=== PATIENT | female | born 1970 | race Caucasian/White ===

== ENCOUNTER → 2017-08-23 | Outpatient (CLI) | payer OTHER ==
[~2017-08-23] MED LIST: PROHANCE 279.3MG/ML 15ML VIAL (A9576) As Ordered
== END ==
LOC: M RAD 09:41
DX: R92.8 Other abnormal and inconclusive findings on diagnostic imaging of breast (principal)
CPT/HCPCS: A9576

== ENCOUNTER → 2017-09-04 | Outpatient (CLI) | payer OTHER | LOC: M RAD 14:35 | DX: N60.31 Fibrosclerosis of right breast (principal); N60.32 Fibrosclerosis of left breast | CPT/HCPCS: A9576 ==

== ENCOUNTER → 2018-04-01 | Outpatient (CLI) | payer OTHER ==
--- NOTE | 2018-04-01 14:16 | REPMRS ---
Patient History The patient states she has not had a clinical breast exam in over a year. Patient is postmenopausal and had first child at age 30. Family history of breast cancer at age 55 in mother. 2D ONLY. Digital Mammo Screening Bilat: April 01, 2018 - Exam #: [id number] Bilateral CC and MLO view(s) were taken. Technologist: Angelique Lopez, Technologist Prior study comparison: September 04, 2017, bilateral breast MRI performed at [facility]. January 30, 2017, bilateral digital mammo screening bilat performed at [facility]. January 21, 2016, bilateral digital mammo screening bilat performed at [facility]. FINDINGS: There are scattered fibroglandular densities. There is a moderate amount of residual fibroglandular tissue which is fairly symmetric. There is no interval development of dominant mass, architectural distortion, or clustered microcalcification typical of malignancy. There has been no change in the appearance of the mammogram from the prior studies. 3-D tomosynthesis shows no additional findings. Assessment: BI-RADS/ACR category 1 mammogram. Negative. Recommendation Breast MRI of both breasts in 6 months. Routine screening mammogram of both breasts in 1 year (for women over age 40). This patient's Lifetime Breast Cancer RIsk is estimated at 24.0 %. Annual screening Breast MRI scanniing is recommended for patient's whose lifetime risk assessment is over 20%. This mammogram was interpreted with the aid of an FDA-approved computer-aided dectection system. Electronically Signed By: Kai Cedillo MD 04/01/18 [id number]
== END ==
LOC: M RAD 13:20
PROVIDERS: ATTEND Internal Medicine
DX: Z12.31 Encounter for screening mammogram for malignant neoplasm of breast (principal)

== ENCOUNTER → 2018-11-18 | Outpatient (CLI) | payer OTHER ==
[~2018-11-18] MED LIST changes: -PROHANCE 279.3MG/ML 15ML VIAL (A9576) As Ordered; +PROHANCE 279.3MG/ML 15ML VIAL (A9576) As Ordered ONE
--- NOTE | 2018-11-19 06:54 | REP ---
MRI BILATERAL BREAST WITH AND WITHOUT CONTRAST: Comparison MRI 09/04/2017 and mammogram 04/01/2018. Family history of breast cancer in mother age 55. [facility] lifetime risk of breast cancer 24.0%. Multiple sequences obtained in the axial, coronal and sagittal planes, prior to and following the intravenous administration of 14.8 mL ProHance. Image are evaluated in the [employer] software including dynamic post-IV gadolinium T1 fat sat images, color overlay and CAD images as well as MIP reconstruction images. There is no significant change when compared to the prior exam. Mild to moderate scattered fibroglandular tissue is seen bilaterally. A couple of subcentimeter cysts are scattered in the left breast. There is mild bilateral background parenchymal enhancement with no change in the pattern compared to the prior study. There is no suspicious enhancing mass or morphologic abnormality. No axillary adenopathy is seen. IMPRESSION: BIRADS category 1 negative bilateral breast MRI. No change since the prior study of 09/04/2017. No suspicious enhancing mass or morphologic abnormality. Yearly supplemental screening MRI of the breast is recommended for patients with lifetime risk of breast cancer of 20% or greater. Electronically Signed by Burke Knox MD 11/19/2018 11:52 P
== END ==
LOC: M RAD 14:45
PROVIDERS: ATTEND Nurse Practitioner Primary Care
DX: Z12.31 Encounter for screening mammogram for malignant neoplasm of breast (principal); Z80.3 Family history of malignant neoplasm of breast
CPT/HCPCS: A9576; C8908

== ENCOUNTER → 2019-01-16 | Outpatient (REF) | payer OTHER | LOC: M LAB REF 18:05 | PROVIDERS: ATTEND Orthopaedic Surgery Hand Surgery | DX: M77.12 Lateral epicondylitis, left elbow (principal) ==

== ENCOUNTER → 2019-04-02 | Outpatient (CLI) | payer OTHER ==
--- NOTE | 2019-04-02 14:22 | REPMRS ---
Patient History The patient states she has not had a clinical breast exam in over a year. Patient is postmenopausal and had first child at age 30. Family history of breast cancer at age 55 in mother. No Hormone Replacement Therapy Digital Woman Screen Mammo: April 02, 2019 - Exam #: [id number] Bilateral CC and MLO view(s) were taken. Technologist: Ansley Lozoya, Technologist Prior study comparison: April 01, 2018, bilateral digital mammo screening bilat, performed at [facility]. January 30, 2017, bilateral digital mammo screening bilat, performed at [facility]. January 21, 2016, bilateral digital mammo screening bilat, performed at [facility]. FINDINGS: There are scattered fibroglandular densities. There is a moderate amount of residual fibroglandular tissue which is fairly symmetric. There is no interval development of dominant mass, architectural distortion, or grouped microcalcification typical of malignancy. There has been no change in the appearance of the mammogram from the prior studies. Assessment: BI-RADS/ACR category 1 mammogram. Negative Mammogram. Recommendation Breast MRI of both breasts in 6 months. Routine screening mammogram of both breasts in 1 year (for women over age 40). This patient's Lifetime Breast Cancer RIsk is estimated at 23.6 %. Annual screening Breast MRI scanniing is recommended for patient's whose lifetime risk assessment is over 20%. This mammogram was interpreted with the aid of an FDA-approved computer-aided dectection system. Electronically Signed By: Kai Cedillo MD 04/02/19 [id number]
== END ==
LOC: M WHC 13:04
PROVIDERS: ATTEND Nurse Practitioner Primary Care
DX: Z12.31 Encounter for screening mammogram for malignant neoplasm of breast (principal); Z78.0 Asymptomatic menopausal state; Z80.3 Family history of malignant neoplasm of breast

== ENCOUNTER 2019-04-28 17:43 | Emergency (ER) | payer OTHER ==
[~2019-04-28] VITALS: Ht 160 cm; Wt 78.1 kg
[2019-04-28] MEDS ORDERED: METH4PACK PO (20:24)
[2019-04-28] MEDS ORDERED: MEDR4TAB PO (20:24)
[2019-04-28] MEDS ORDERED: AJOV225I SC (20:24)
[2019-04-28] MEDS ORDERED: TIZA2CAP PO (20:24)
[2019-04-28] MEDS ORDERED: ZONI50CA11 PO (20:24)
[2019-04-28] MEDS ORDERED: NORT10CA2 PO (20:24)
[2019-04-28] MEDS ORDERED: LEXA1TAB PO (20:25)
[2019-04-28] MEDS ORDERED: MELO15TA28 PO (20:25)
[2019-04-28] MEDS ORDERED: MAXA10TA14 PO (20:25)
[2019-04-28] MEDS ORDERED: ACET-897 PO (20:25)
[2019-04-28] MEDS ORDERED: SUCRALFATE 1 GM TAB PO ONE (21:00)
[2019-04-28] MEDS ORDERED: NS 1,000 ML IV ONE (21:00)
[2019-04-28] MEDS ORDERED: GI COCKTAIL 50ML BTL(HYOSCYAMINE/MAALOX/LIDOCAINE VISCOUS)(1:3:1) PO ONE (21:00)
[2019-04-28 21:14] LABS: INFLUENZA A AMPLIFICATION NEGATIVE (NEGATIVE); INFLUENZA B AMPLIFICATION NEGATIVE (NEGATIVE)
[2019-04-28 21:34] LABS: BASO % 0.1 % (0.0-1.0); HEMATOCRIT 39.3 % (36.0-47.0); HEMOGLOBIN 12.5 g/dl (12.0-15.5); LYMPH # 1.2 10^3/uL (1.5-5.0); LYMPH % 15.3 % (24.0-44.0); MEAN CORPUSCULAR HGB CONC 31.8 g/dl (32.0-36.5); MEAN CORPUSCULAR VOLUME 94.2 fl (80.0-96.0); MONO # 0.1 10^3/uL (0.0-0.8); MONO % 1.8 % (0.0-5.0); NEUTROPHILS # 6.5 10^3/uL (1.5-8.5); NEUTROPHILS % 82.3 % (36.0-66.0); PLATELET COUNT, AUTOMATED 279 10^3/uL (150-450); RED BLOOD COUNT 4.17 10^6/uL (4.00-5.40); WHITE BLOOD COUNT 7.9 10^3/uL (4.0-10.0)
[2019-04-28 22:03] LABS: ALBUMIN 4.1 GM/DL (3.2-5.2); ALT/SGPT 27 U/L (12-78); BILIRUBIN,DIRECT < 0.1 MG/DL (0.0-0.2); BILIRUBIN,TOTAL 0.3 MG/DL (0.2-1.0); CK-MB VALUE MASS < 1.0 NG/ML (<3.6); CPK CREATINE PHOSPHOKINASE 113 U/L (26-192); LIPASE 77 U/L (73-393); MB/CK RELATIVE INDEX 0.88 (< OR =4); TOTAL PROTEIN 7.8 GM/DL (6.4-8.2); TROPONIN I < 0.02 NG/ML (< 0.10)
[2019-04-28] MEDS ORDERED: VALPROATE SOD INJ 1,000 MG in D5W 50 ML IV ONE (22:15)
[2019-04-28] MEDS ORDERED: MAG SULF 1GM/100ML (MAG RUN) 1 GM in IV 1 EA IV ONE (23:30)
--- NOTE | 2019-04-29 | REPVR ---
PROCEDURE INFORMATION: Exam: US Abdomen Limited, Right Upper Quadrant Exam date and time: 04/28/2019 11:36 PM Age: 48 years old Clinical indication: Abdominal pain; Epigastric; Additional info: Epigastric pain TECHNIQUE: Imaging protocol: Real-time ultrasound of the abdomen with image documentation. Examination was focused on the right upper quadrant. COMPARISON: No relevant prior studies available. FINDINGS: Liver: The liver demonstrates no focal defects. Gallbladder: The gallbladder demonstrates no stones and no wall thickening measuring 1-2 mm. Common bile duct: The common bile duct measures 4 mm. Pancreas: Limited visualization of the pancreas appears normal. Right kidney: The right kidney appears normal with no hydronephrosis and measures 10.0 cm. IMPRESSION: Negative right upper quadrant sonogram. No gallstones. Electronically signed by: Dylan Self On 04/29/2019 00:00:24 AM
[2019-04-29] MEDS ORDERED: OMEP-218 PO (00:15)
[2019-04-29] MEDS ORDERED: CARA1TAB6 PO (00:15)
[2019-04-29 00:19] VITALS: BP 140/86
--- NOTE | 2019-04-30 14:46 | ECGEPIP ---
[facility] - ED Test Date: 2019-04-28 Pat Name: ALEKS BISHOP Department: Room: - Gender: Female Title Officer: [facility] : 1970 Requested By: VITO Garcia PA-C Order Number: [id number] Reading MD: Sarah Sharp Measurements Intervals [place] Rate: 75 P: 43 NM: 147 QRS: 7 QRSD: 74 T: 4 QT: 401 QTc: 449 Interpretive Statements SINUS RHYTHM NSTTW abnormalities NO PRIOR Electronically Signed on 04-30-2019 14:46:44 EST by Sarah Sharp
== END 2019-04-29 00:28 | disposition home or self-care (01) ==
LOC: M ED 17:43
DX: G43.909 Migraine, unspecified, not intractable, without status migrainosus (principal); R10.13 Epigastric pain; F17.200 Nicotine dependence, unspecified, uncomplicated; Z79.899 Other long term (current) drug therapy; Z88.2 Allergy status to sulfonamides; Z88.6 Allergy status to analgesic agent
CPT/HCPCS: 76705; 80047; 80076; 82550; 82553; 83690; 84484; 85025; 87631; 93005; 96361; 96365; 99284; J3475

== ENCOUNTER → 2020-01-12 | Outpatient (CLI) | payer OTHER ==
[~2020-01-12] MED LIST changes: +ACET-897 PO; +AJOV225I SC; +CARA1TAB6 PO; +LEXA1TAB PO; +MAXA10TA14 PO; +MEDR4TAB PO; +MELO15TA28 PO; +METH4PACK PO; +NORT10CA2 PO; +OMEP-218 PO; -PROHANCE 279.3MG/ML 15ML VIAL (A9576) As Ordered ONE; +TIZA2CAP PO; +ZONI50CA11 PO
== END ==
LOC: M RAD 14:36
PROVIDERS: ATTEND Family Medicine
DX: Z12.31 Encounter for screening mammogram for malignant neoplasm of breast (principal)

== ENCOUNTER → 2020-01-12 | Outpatient (CLI) | payer OTHER ==
--- NOTE | 2020-01-13 09:34 | REP ---
INDICATION: MACHELLE LOCAL SWELLING MASS/LUMP UPPER LIMB. COMPARISON: None. TECHNIQUE: Multiple sequences are obtained in the sagittal, axial and coronal planes. FINDINGS: On the right, the patient has a ring on her 4th digit. Multiple attempts to remove the ring were unsuccessful. This causes surrounding signal dropout and artifact obscuring majority of the 4th and 5th digits, the proximal 3rd digit and the distal 3rd through 5th metacarpals. The remaining visualized osseous structures of the right hand demonstrate no evidence of marrow signal abnormality. There is no bone marrow edema or occult fracture. No abnormal soft tissue signal is seen. No soft tissue edema or fluid collection. No ganglion cyst is seen. The visualized flexor and extensor tendons are intact without evidence of tenosynovitis. Visualized collateral ligaments appear intact. There is no malalignment of the visualized osseous structures. The triangular fibrocartilage complex is intact. Scapholunate and lunatotriquetral ligaments are intact. The carpal tunnel region is unremarkable. No joint effusion is seen. On the left artifact limits evaluation of the proximal and medial carpal bones. The visualized osseous structures demonstrate normal bone marrow signal. There is no bone marrow edema or occult fracture. There is no malalignment of the osseous structures. No soft tissue signal abnormality. There is no edema. There is no adjacent ganglion cyst. No joint effusion is seen. The visualized flexor and extensor tendons are intact. The visualized collateral ligaments are intact. Triangular fibrocartilage complex is not visualized. IMPRESSION: Artifact somewhat limits the exam as discussed in detail above. No definite abnormality is identified bilaterally. <Electronically signed by Burke Knox > 01/13/20 [id number]
== END ==
LOC: M RAD 14:49
PROVIDERS: ATTEND Internal Medicine
DX: R22.33 Localized swelling, mass and lump, upper limb, bilateral (principal)

== ENCOUNTER → 2020-02-12 | Outpatient (REF) | payer OTHER ==
[2020-02-12 16:56] LABS: C REACTIVE PROTEIN QUANTITATIV 0.59 MG/DL (0.00-0.30); CALCIUM LEVEL 9.8 MG/DL (8.5-10.1)
[2020-02-12 17:10] LABS: PTH INTACT 37.6 PG/ML (18.5-88.0)
== END ==
LOC: M SFHCRHEU 11:55
PROVIDERS: ATTEND Internal Medicine
DX: M25.40 Effusion, unspecified joint (principal); E83.52 Hypercalcemia
CPT/HCPCS: 82310; 83970; 85652; 86140; G0463

== ENCOUNTER → 2020-02-23 | Outpatient (REF) | payer OTHER ==
[2020-02-23 12:18] LABS: AMORPHOUS SEDIMENT SMALL (NEGATIVE); APPEARANCE, URINE CLOUDY (CLEAR); BACTERIA, URINE AUTO NEGATIVE (NEGATIVE); BILIRUBIN, URINE AUTO NEGATIVE (NEGATIVE); BLOOD, URINE BLOOD NEGATIVE (NEGATIVE); COLOR, URINE YELLOW (YELLOW); GLUCOSE, URINE (UA) AUTO NEGATIVE (NEGATIVE); KETONE, URINE AUTO NEGATIVE (NEGATIVE); LEUKOCYTE ESTERASE, URINE AUTO NEGATIVE (NEGATIVE); MUCUS, URINE SMALL (NEGATIVE); NITRITE, URINE AUTO NEGATIVE (NEGATIVE); PROTEIN, URINE AUTO NEGATIVE (NEGATIVE); RBC, URINE AUTO 2 /HPF (0-3); SPECIFIC GRAVITY URINE AUTO 1.029 (1.002-1.035); SQUAMOUS EPITHELIAL CELL UR AU 4 /HPF (0-6); UROBILINOGEN, URINE AUTO 0.2 mg/dL (0.0-2.0); WBC, URINE AUTO 1 /HPF (0-3)
[2020-02-23 12:34] LABS: BASO % 0.3 % (0.0-1.0); EOS # 0.1 10^3/uL (0.0-0.5); EOS % 1.8 % (0.0-3.0); HEMATOCRIT 40.5 % (36.0-47.0); HEMOGLOBIN 12.9 g/dl (12.0-15.5); LYMPH # 2.3 10^3/uL (1.5-5.0); LYMPH % 36.9 % (24.0-44.0); MEAN CORPUSCULAR HEMOGLOBIN 30.8 pg (27.0-33.0); MEAN CORPUSCULAR HGB CONC 31.9 g/dl (32.0-36.5); MEAN CORPUSCULAR VOLUME 96.7 fl (80.0-96.0); MONO # 0.5 10^3/uL (0.0-0.8); MONO % 7.7 % (0.0-5.0); NEUTROPHILS # 3.3 10^3/uL (1.5-8.5); PLATELET COUNT, AUTOMATED 276 10^3/uL (150-450); RED BLOOD COUNT 4.19 10^6/uL (4.00-5.40); WHITE BLOOD COUNT 6.2 10^3/uL (4.0-10.0)
[2020-02-23 12:37] LABS: TOTAL PROTEIN,RANDOM URINE 22.7 MG/DL (0.0-12.0)
[2020-02-23 13:01] LABS: COMPLEMENT C3 132 MG/DL (90-180); COMPLEMENT C4 20 MG/DL (10-40)
[2020-02-23 13:05] LABS: TOTAL PROTEIN 7.1 GM/DL (6.4-8.2)
[2020-02-23 13:12] LABS: HEPATITIS B SURFACE ANTIBODY POSITIVE (POSITIVE)
[2020-02-23 13:22] LABS: HEPATITIS B SURFACE ANTIGEN NEGATIVE (NEGATIVE)
[2020-02-23 13:50] LABS: HEPATITIS C VIRUS ABY INDEX < 0.0 INDEX (<0.8)
[2020-02-24 11:01] LABS: ALBUMIN 4.48 GM/DL (3.29-5.55); ALBUMIN % 63.1 % (55.8-66.1); ALPHA-1-GLOBULIN % 4.1 % (2.9-4.9); ALPHA-1-GLOBULINS 0.29 GM/DL (0.17-0.41); ALPHA-2-GLOBULINS 0.72 GM/DL (0.42-0.99); ALPHA-2-GLOBULINS % 10.1 % (7.1-11.8); BETA-1-GLOBULINS 0.42 GM/DL (0.28-0.60); BETA-1-GLOBULINS % 5.9 % (4.7-7.2); BETA-2-GLOBULINS 0.39 GM/DL (0.19-0.55); BETA-2-GLOBULINS % 5.5 % (3.2-6.5); GAMMA GLOBULIN % 11.3 % (11.1-18.8)
[2020-02-25 11:13] LABS: DRVV SCREEN 43.8 SEC
[2020-02-25 11:16] LABS: PTT LUPUS TYPE ANTICOAG SCREEN 1.1 (0-1.2)
== END ==
LOC: M SFHCRHEU 10:34
PROVIDERS: ATTEND Internal Medicine
DX: M06.4 Inflammatory polyarthropathy (principal)

== ENCOUNTER → 2020-06-15 | Outpatient (REF) | payer OTHER | LOC: M SFHCRHEU 13:15 | PROVIDERS: ATTEND Internal Medicine | DX: M06.4 Inflammatory polyarthropathy (principal) ==